=== PATIENT | male | born 1985 | race Caucasian/White ===

== ENCOUNTER 2016-12-08 01:05 | Emergency (ER) | payer BC ==
[~2016-12-08] VITALS: Ht 188 cm; Wt 100.0 kg
[~2016-12-08 01:05] MED LIST: AC500T PO; CEPH-507 PO; CYCL-265 PO; HYDR-3702 PO; HYDR-3754 PO; IBP200T PO; MELO-249 PO; TRAM-25 PO
--- OUTSIDE RECORDS SUMMARY | 2016-12-08 01:09 | XMS REPORT | Continuity of Care Document ---
Author Author [facility] Organization [facility]IS Address Unknown Phone Unavailable Care Team Providers Care [employer] Trader Name Role Phone ROSAMONIKA MD PCP [phone] Insurance Providers Payer Name Policy Number Subscriber Name Relationship [facility] [id number] Christiane Eisenberg 17 Self / Same As Patient Chief Complaint and Reason for Visit Chief Complaint Injury Reason for Visit Ankle injury Problems Medical Problems Problem Onset Date Status Backache 07/15/2012 Active Injury of back 07/16/2012 Resolved Low back pain 07/15/2012 Resolved Fracture of ulna 10/21/2012 Resolved Trapezius muscle strain ~09/15/2014 Active Toothache Unknown Active Ankle injury Unknown Active Medications Medication Dose Route Sig Days/Qty Instructions Order Date Discontinued Date Status Ibuprofen 600 Mg ORAL NEEDED 07/15/12 Active Meloxicam 15 Mg ORAL DAILY 15 Qty 07/15/12 09/15/14 Discontinued Cyclobenzaprine Hcl 1 Tab ORAL BEDTIME 15 Qty 07/15/12 09/15/14 Discontinued Acetaminophen 2 Tab ORAL NEEDED 10/21/12 Active Hydrocodone Bit/Acetaminophen 1 Tab ORAL Q 4H PRN 15 Qty Pain 10/21/12 09/15/14 Discontinued Tramadol Hcl 50 Mg ORAL THREE TIMES A DAY PRN PAIN 10 Qty 09/15/14 Discontinued Cephalexin 500 Mg ORAL THREE TIMES A DAY 10 Days 02/09/15 06/22/15 Discontinued Acetaminophen/Hydrocodone Bitart 1 Tab ORAL EVERY 6 HOURS PRN 20 Qty One po q6hrs prn severe pain 02/09/15 06/22/15 Discontinued Acetaminophen/Hydrocodone Bitart 1-2 Tab ORAL EVERY 4HRS PRN PAIN 30 Qty 06/22/15 Active Social History No social history. Hospital Discharge Instructions No hospital discharge instructions. Plan of Care Discharge Date 06/22/15 9:27pm Disposition 01 HOME OR SELF-CARE Condition at Discharge Stable Instructions/Education Provided Ankle Sprain Exercises (GEN) Ankle Sprain (ED) Prescriptions See Medications Section Referrals MONIKA LEE MD Additional Instructions/Education Ice, elevate ankle. ED STEVE if any worse. See your doctor in 1 week if not greatly improved. [place] as directed. Some of your test results may not be complete prior to your leaving the Emergency Department. The Emergency Department is not authorized to give test results over the phone. Please contact the doctor's office listed in this packet of information for your final results. Follow up with your primary care physician or return to the Emergency Department for worsening or worrisome symptoms. * Emergency Department phone number: [phone], x [phone]* MEDICAL RECORD If you need copies of your X-rays, call [phone]. If you need copies of your medical record, including lab results, a signed authorization for release of records will be required. A telephone call for release of Health Information is not allowed. BILLING Billing can sometimes be confusing and frustrating. To help avoid confusion in the future, please take a moment to acquaint yourself with the billing parties for services. SERVICE BILLING DEMOCRAT Emergency Room Services [facility] Physician Services [facility] X-rays [facility] Patients will receive bills for services from the appropriate provider. If you have any questions about your [facility] bill, our staff will be happy to assist you. Please call [phone], and ask for the billing department. THANK YOU for choosing [facility] as your emergency care provider! Functional Status No functional status results. Allergies, Adverse Reactions, Alerts Allergen Type Severity Reaction Status Last Updated No Known Drug Allergies Active 07/15/12 Immunizations No immunization records. Vital Signs Acute Vital Signs Vital Response Date/Time Temperature (Fahrenheit) 98.1 Pulse 123 bpm Respirations 18 Height 6 ft 2 in Weight 208 lb Body Mass Index 26.0 kg/m^2 Results No known relevant diagnostic tests, laboratory data and/or discharge summary. Procedures No known history of procedures. Encounters Encounter Location Date/Time Registered Emergency Room [facility] 06/22/15 8:18pm Recent Diagnosis
--- OUTSIDE RECORDS SUMMARY | 2016-12-08 01:10 | XMS REPORT | Continuity of Care Document ---
Author Author [facility] Organization [facility]IS Address Unknown Phone Unavailable Care Team Providers Care Sales Order Coordinator Name Role Phone ROSAMONIKA MD PCP [phone] Insurance Providers Payer Name Policy Number Subscriber Name Relationship [facility] [id number] Christiane Eisenberg 17 Self / Same As [...] in 1 week if not greatly improved. [place] as directed. Some of your test results [...] worrisome symptoms. * Emergency Department phone number: [phone], x [phone]* MEDICAL RECORD If you need copies of your X-rays, call [phone]. If you need copies of [...] the billing parties for services. SERVICE BILLING REPUBLICAN Emergency Room Services [facility] Physician Services [facility] X-rays [facility] Patients will receive bills for services from the appropriate provider. If you have any questions about your [facility] bill, our staff will be happy to assist you. Please call [phone], and ask for the billing department. THANK YOU for choosing [facility] as your emergency care provider! Functional Status [...] Encounters Encounter Location Date/Time Registered Emergency Room [facility] 06/22/15 8:18pm Recent Diagnosis
[2016-12-08] MEDS ORDERED: ED- TRAMADOL 50 MG (ULTRAM) 6 TABLETS/BTL PO ONE (01:30)
[2016-12-08] MEDS ORDERED: CEPHALEXIN 500 MG (KEFLEX) CAPSULE PO ONE (01:30)
[2016-12-08] MEDS ORDERED: CEPH-507 PO (01:32)
[2016-12-08] MEDS ORDERED: TRAM-25 PO (01:32)
[2016-12-08 01:44] VITALS: BP 154/88
[2016-12-10] MEDS ORDERED: SULF-221 PO (19:10)
[2016-12-11] MEDS ORDERED: FLX20C PO (08:49)
== END 2016-12-08 01:44 | disposition home or self-care (01) ==
LOC: ED 01:07
DX: L03.115 Cellulitis of right lower limb (principal)
CPT/HCPCS: 99282; 99283

== ENCOUNTER → 2016-12-10 | Outpatient (CLI) | payer BC ==
[2016-12-11 09:07] VITALS: BP 135/90
== END ==
LOC: MHUC 18:49
PROVIDERS: ATTEND Physician Assistant Medical
DX: L03.115 Cellulitis of right lower limb (principal)
CPT/HCPCS: 99212

== ENCOUNTER → 2017-04-06 | Outpatient (CLI) | payer BC ==
[~2017-04-06] MED LIST changes: +FLX20C PO; +SULF-221 PO
--- NOTE | 2017-04-06 10:09 | Diagnostic Imaging Report ---
PROCEDURE: CT left lower extremity without contrast. TECHNIQUE: Multiple contiguous axial images were obtained through the left ankle without the use of intravenous contrast. Sagittal and coronal reformations were then performed. 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 COMPARISON: CT of the ankle from 04/20/2016. FINDINGS: There has been interval repair of the large subcortical cystic component of the osteochondral lesion in the posterior lateral talar dome. The subchondral cyst has been filled in with bone graft material which appears to have good osseous incorporation. There are a few tiny residual subchondral cystic foci in the most posterior aspect with the largest residual subcortical cyst measuring up to 3 mm. There is a metallic component to the bone plug within the subchondral filling tract, likely anchoring the bone graft in place. This is well-positioned within the central aspect of the talus. In the distal aspect of the bone graft tract, there is bone graft material also in place which appears at least partially incorporated. Subcortical cystic change in the anterior and lateral aspect of the tibial plafond is similar. No new osteochondral lesion of the talar dome or tibial plafond. There is no collapse of the articular surface of the talar dome. The distal Achilles is normal. The peroneal tendons are normal in position. The medial flexor and anterior extensor tendons of the ankle are grossly normal. There is a small amount of heterotopic bone within the anterior and lateral aspect of the soft tissues of the ankle along the surgical tract which is likely post operative in nature. There is surrounding soft tissue induration surrounding this heterotopic ossification, compatible with post operative scar. No ankle joint effusion. There are a few foci of mineralization along the posterior and lateral margin of the talar dome which may be post operative in nature or due to a few small displaced osteochondral fragments. Previously, there was a larger osseous fragment in this location with now numerous tiny foci. IMPRESSION: 1. Status post retrograde drilling with bone grafting of the large cystic component of the osteochondral lesion in the posterior lateral aspect of the talar dome. The bone graft is well incorporated with the parent talus and there is minimal residual subcortical cystic change in the talar dome. No collapse of the subchondral bone plate/articular surface. 2. There are a few tiny ossific fragments along the posterolateral margin of the talar dome osteochondral lesion which may represent a few post operative ossific fragments versus tiny displaced osteochondral fragments. Dictated by: Dictated on workstation # [id number]
== END ==
LOC: RAD 08:30
PROVIDERS: ATTEND Orthopaedic Surgery Foot and Ankle Surgery
DX: M93.272 Osteochondritis dissecans, left ankle and joints of left foot (principal)
CPT/HCPCS: 73700